=== PATIENT | male | born 1945 | race Hispanic/Latino ===

== ENCOUNTER → 2019-11-03 | Outpatient (CLI) | payer OTHER | END | disposition home or self-care (01) | LOC: RAH 12:37 | PROVIDERS: ATTEND Family Medicine | DX: M79.671 Pain in right foot (principal) | CPT/HCPCS: 73630 ==

== ENCOUNTER → 2020-02-22 | Outpatient (CLI) | payer OTHER | END | disposition home or self-care (01) | LOC: OIH 15:23 | PROVIDERS: ATTEND Family Medicine | DX: J84.10 Pulmonary fibrosis, unspecified (principal) | CPT/HCPCS: 71046 ==

== ENCOUNTER 2020-08-16 13:03 | Inpatient (IN) | payer OTHER ==
[~2020-08-16] VITALS: Ht 175.3 cm; Wt 69.1 kg
[2020-08-16] MEDS ORDERED: DEXTROSE 50%-WATER 50 ML DISP.SYRIN IV ONE ×3 (13:33→22:42)
[2020-08-16 13:54] LABS: BASOPHILS % (AUTO) 0.3 % (0.0-5.0); LYMPHOCYTES % (AUTO) 5.6 % (21.0-51.0); MEAN CORPUSCULAR HEMOGLOBIN 26.7 pg (27.0-33.0); MEAN CORPUSCULAR VOLUME 76.2 fL (79-99); MONOCYTES % (AUTO) 7.2 % (3.0-13.0); NEUTROPHILS % (AUTO) 82.7 % (40.0-77.0); PLATELET COUNT (AUTO) 197 K/uL (130-400); RED BLOOD CELL COUNT(AUTO) 4.46 MIL/uL (4.50-6.20); RED CELL DISTRIBUTION WIDTH 14.3 % (11.0-15.5); WHITE BLOOD COUNT (AUTO) 18.5 K/uL (4.8-10.8)
[2020-08-16 14:06] LABS: ALBUMIN 2.6 g/dL (3.5-5.0); BILIRUBIN,TOTAL 0.4 mg/dL (0.2-1.0); TOTAL PROTEIN, SERUM 5.9 g/dL (6.0-8.3)
[2020-08-16 14:08] LABS: POTASSIUM 6.6 mmol/L (3.5-5.1)
[2020-08-16 14:09] LABS: CREATININE 13.4 mg/dL (0.5-1.5)
[2020-08-16] MEDS ORDERED: LEVOFLOXACIN 750 MG/D5W 150 ML 150 ML ONE (14:48)
[2020-08-16] MEDS ORDERED: IOHEXOL-350 75 ML VIAL IV ONE (14:50)
[2020-08-16 14:52] LABS: INR 0.95 (0.85-1.15); PARTIAL THROMBOPLASTIN TIME 28.2 SEC (26.3-35.5); PROTHROMBIN TIME 10.3 SEC (9.6-11.6)
[2020-08-16 15:35] LABS: TROPONIN I 0.19 ng/mL (0.00-0.06)
[2020-08-16] MEDS ORDERED: SODIUM BICARB 50MEQ 50ML VIAL 50 ML ONE ×2 (15:46→17:40)
[2020-08-16] MEDS ORDERED: VANCOMYCIN 1.25 GM in SODIUM CHLORIDE 0.9% 250 ML IV SCH (16:00)
[2020-08-16 17:12] LABS: APPEARANCE,URINE Clear (CLEAR); BILIRUBIN,URINE Negative (NEGATIVE); COLOR,URINE Dark Yellow (YELLOW); GLUCOSE, URINE (UA) 250 mg/dL (NEGATIVE); KETONES,URINE Negative (NEGATIVE); LEUKOCYTE ESTERASE ,URINE Small (NEGATIVE); NITRATE,URINE Positive (NEGATIVE); OCCULT BLOOD,URINE Trace (NEGATIVE); PROTEIN,URINE Negative (NEGATIVE)
[2020-08-16 17:29] LABS: ABG BASE EXCESS -16.2 mmol/L (-2.0-3.0); ABG HCO3 8.8 mmol/L (21.0-28.0); ABG OXYGEN SATURATION 96.3 % (95.0-99.0); ABG PCO2 21 mmHg (35-48)
[2020-08-16 17:32] LABS: BACTERIA,URINE Few /HPF (None Seen)
[2020-08-16 17:34] LABS: SQUAMOUS EPITHELIAL CELL,UR Rare /HPF (0-2)
[2020-08-16] MEDS ORDERED: INSULIN HUMULIN R 100 UNIT/ML 3ML ONE (17:40)
[2020-08-16 17:50] LABS: POTASSIUM 6.6 mmol/L (3.5-5.1)
[2020-08-16 17:51] LABS: CREATININE 11.6 mg/dL (0.5-1.5)
[2020-08-16] MEDS ORDERED: SODIUM BICARB 50MEQ 50ML VIAL 200 ML ONE (20:00)
[2020-08-16] MEDS ORDERED: ACETAMINOPHEN 325 MG TAB PO PRN (20:15)
[2020-08-16] MEDS ORDERED: ONDANSETRON HCL 4 MG/2 ML VIAL IVP PRN (20:15)
[2020-08-16] MEDS: SODIUM BICARB 50MEQ 50ML VIAL 150 MEQ in DEXTROSE 5%-WATER 1,000 ML IV SCH (20:15)
[2020-08-16 23:20] VITALS: BP 151/67
--- NOTE | 2020-08-16 23:25 | NUR ---
ADMIT PT ADMITTED TO ROOM 406, AAOX3. NOTED TO HAVE GBW. CONVERSANT AND COHERENT. ADMISSION CARE DONE. ADMISSION DATA BASE COMPLETED. PT'S HOME MEDS WILL NEED TO BE BROUGHT IN BY FAMILY, SPOUSE IS AWARE. PLACED COMFORTABLY IN BED WITH HOB ELEVATED. SANDWICH GIVEN BY NURSE FROM ER BEING EATEN BY PT AT THIS TIME. BS HKPYG=650. TELE MONITOR PLACED, PT IS ST WITH KI=892 BPM. SCD'S APPLIED TO BLE. CONTINUED IVF OF D5W + NA BICARB AT 200CC/HR. ORIENTED TO ROOM AND UNIT. IN FOR MORE CARE AND MANAGEMENT. Addendum: 08/17/20 at 0003 by LIBRA SINHA RN RN Amended: Links added.
[2020-08-16] MEDS ORDERED: AMOX1TAB16 PO (23:40)
[2020-08-16] MEDS ORDERED: DEXTROSE 50%-WATER 50 ML DISP.SYRIN IV PRN (23:45)
[2020-08-16] MEDS ORDERED: GLUCAGON 1MG KIT 1 MG ML IM PRN (23:45)
[2020-08-17 00:59] LABS: CREATININE 5.9 mg/dL (0.5-1.5); POTASSIUM 4.2 mmol/L (3.5-5.1)
[2020-08-17] MEDS ORDERED: SODIUM BICARB 50MEQ 50ML VIAL 150 ML ONE (01:32)
[2020-08-17] MEDS ORDERED: DEXTROSE 5%-WATER 1,000 ML IV ONE ×2 (01:33→08:45)
--- NOTE | 2020-08-17 01:45 | NUR ---
SCD'S PT CALLS AND CLAIMS THAT SCD'S ARE HOT AND IS UNCOMFORTABLE. PT'S SPOUSE REMOVED SCD'S FOR NOW.
[2020-08-17] MEDS: SODIUM BICARB 50MEQ 50ML VIAL 150 MEQ in DEXTROSE 5%-WATER 1,000 ML IV SCH ×3 (01:55→14:23)
--- NOTE | 2020-08-17 03:47 | NUR ---
O2 SAT PT IS RESTING IN BED. DENIES ANY DISCOMFORT NOR PAINS AT THIS TIME. NO RESPIRATORY DISTRESS NOTED. O2 SAT=87-88% ON RA. RE-POSITIONED PT IN BED WITH HOB ELEVATED. O2 PROVIDED AT 2LPM VIA NC. O2 SAT INCREASED TO 92%. Addendum: 08/17/20 at 0353 by LIBRA SINHA RN RN Amended: Links added.
[2020-08-17 03:54] VITALS: BP 155/60
--- NOTE | 2020-08-17 07:10 | NUR ---
REPORT REPORT GIVEN TO AM SHIFT NURSEELISABETH. NURSES ROUNDS DONE. FOR MORE CARE.
[2020-08-17 08:00] VITALS: BP 133/68
[2020-08-17] MEDS ORDERED: PANTOPRAZOLE SODIUM 40 MG TABLET.DR PO SCH (09:00)
--- NOTE | 2020-08-17 11:43 | NUR ---
[facility] [place] Spoke with patient's spouse (Leora Fernandez at [phone]). As per spouse, patient lives at home with spouse. He was independent with ADLs before this admission, and reports no DME or services being received at home. Spouse and son (Lane Fernandez Jr [phone]) to assist with transport upon discharge. Addendum: 08/17/20 at 1149 by CARLOS VAUGHAN Amended: Links added.
[2020-08-17 12:00] VITALS: BP 136/63
[2020-08-17 16:00] VITALS: BP 155/77
[2020-08-17] MEDS ORDERED: ONDANSETRON HCL 4 MG/2 ML VIAL IV PRN (18:00)
[2020-08-17] MEDS ORDERED: MAG HYDROX/AL HYDROX/SIMETH ES 30 ML SUSP UDCUP PO PRN (18:00)
[2020-08-17] MEDS ORDERED: ACETAMINOPHEN 325 MG TAB PO PRN ×2 (18:00)
[2020-08-17] MEDS ORDERED: LACTULOSE 20 GM/30 ML UDCUP PO PRN (18:00)
[2020-08-17] MEDS ORDERED: MORPHINE SULFATE 2 MG/ML 1ML SYG IV PRN (18:00)
[2020-08-17] MEDS ORDERED: NITROGLYCERIN 0.4 MG SL TAB SL PRN (18:00)
[2020-08-17] MEDS ORDERED: GUAIFENESIN-DM 200/20 MG 10 ML PO PRN (18:00)
[2020-08-17] MEDS ORDERED: ZOLPIDEM TARTRATE 5 MG TAB PO PRN (18:00)
[2020-08-17] MEDS ORDERED: DiphenhydrAMINE HCL 50 MG/ML VIAL IV PRN (18:00)
[2020-08-17] MEDS ORDERED: DIPHENHYDRAMINE HCL 25 MG CAPSULE PO PRN (18:00)
[2020-08-17] MEDS: ZOSYN 3.375GM+NS 50ML 50 ML IV SCH (18:43)
[2020-08-17] MEDS: INSULIN HUMULIN R 100 UNIT/ML 3ML SQ SCH (20:47)
[2020-08-17 20:50] VITALS: BP 148/68
[2020-08-17 23:04] VITALS: BP 144/74
[2020-08-18] MEDS: SODIUM BICARB 50MEQ 50ML VIAL 150 MEQ in DEXTROSE 5%-WATER 1,000 ML IV SCH ×2 (01:53→09:25)
[2020-08-18] MEDS ORDERED: SIMV40TA59 PO (03:34)
[2020-08-18] MEDS ORDERED: ASPI-1197 PO (03:34)
[2020-08-18] MEDS ORDERED: METF-446 PO (03:34)
[2020-08-18] MEDS ORDERED: TAMS-1 PO (03:34)
[2020-08-18] MEDS ORDERED: GLIM4TAB36 PO (03:34)
[2020-08-18] MEDS ORDERED: METO50TA18 PO (03:34)
[2020-08-18 03:49] VITALS: BP 156/66
[2020-08-18 05:37] LABS: BASOPHILS % (AUTO) 0.2 % (0.0-5.0); HEMATOCRIT 28.9 % (42-54); LYMPHOCYTES % (AUTO) 5.7 % (21.0-51.0); MEAN CORPUSCULAR HEMOGLOBIN 26.1 pg (27.0-33.0); MEAN CORPUSCULAR HGB CONC 32.5 g/dL (32.0-36.0); MEAN CORPUSCULAR VOLUME 80.3 fL (79-99); MONOCYTES % (AUTO) 12.3 % (3.0-13.0); NEUTROPHILS % (AUTO) 80.1 % (40.0-77.0); PLATELET COUNT (AUTO) 180 K/uL (130-400); RED CELL DISTRIBUTION WIDTH 14.5 % (11.0-15.5); WHITE BLOOD COUNT (AUTO) 10.9 K/uL (4.8-10.8)
[2020-08-18 06:01] LABS: B-TYPE NATRIURETIC PEPTIDE 112 pg/mL (0-100)
[2020-08-18 06:06] LABS: HEMOGLOBIN A1C 7.8 % (4.0-6.0)
[2020-08-18 06:09] LABS: BILIRUBIN,TOTAL 0.4 mg/dL (0.2-1.0); CREATININE 1.1 mg/dL (0.5-1.5); MAGNESIUM 2.1 mg/dL (1.80-2.40); THYROID STIMULATING HORMONE 0.2 uIU/mL (0.36-3.74); TOTAL PROTEIN, SERUM 4.6 g/dL (6.0-8.3)
[2020-08-18] MEDS: ZOSYN 3.375GM+NS 50ML 50 ML IV SCH ×2 (06:18→18:42)
[2020-08-18] MEDS: INSULIN HUMULIN R 100 UNIT/ML 3ML SQ SCH ×4 (06:27→21:58)
[2020-08-18 07:41] LABS: ABG BASE EXCESS 1.1 mmol/L (-2.0-3.0); ABG HCO3 24.8 mmol/L (21.0-28.0); ABG OXYGEN SATURATION 92.8 % (95.0-99.0); ABG PCO2 37 mmHg (35-48)
[2020-08-18 08:00] VITALS: BP 165/70
[2020-08-18] MEDS: ENOXAPARIN SODIUM 30 MG/0.3 ML SQ SCH (08:48)
[2020-08-18] MEDS: FAMOTIDINE/PF 20 MG/2 ML VIAL IV SCH (08:48)
[2020-08-18] MEDS: TAMSULOSIN HCL 0.4 MG CAP.ER.24H PO SCH (08:48)
[2020-08-18] MEDS: Vitamin B Complex/Vit C/Folic Acid PO SCH (08:48)
[2020-08-18] MEDS: PANTOPRAZOLE SODIUM 40 MG TABLET.DR PO SCH (08:51)
[2020-08-18] MEDS: DEXTROSE 5%-WATER 1,000 ML IV SCH ×2 (10:30→20:30)
[2020-08-18 12:00] VITALS: BP 140/74
[2020-08-18 13:55] LABS: BASOPHILS % (AUTO) 0.2 % (0.0-5.0); HEMATOCRIT 32.1 % (42-54); LYMPHOCYTES % (AUTO) 3.8 % (21.0-51.0); MEAN CORPUSCULAR HEMOGLOBIN 26.5 pg (27.0-33.0); MEAN CORPUSCULAR HGB CONC 32.1 g/dL (32.0-36.0); MEAN CORPUSCULAR VOLUME 82.7 fL (79-99); MONOCYTES % (AUTO) 8.9 % (3.0-13.0); NEUTROPHILS % (AUTO) 84.7 % (40.0-77.0); PLATELET COUNT (AUTO) 192 K/uL (130-400); RED BLOOD CELL COUNT(AUTO) 3.88 MIL/uL (4.50-6.20); RED CELL DISTRIBUTION WIDTH 14.8 % (11.0-15.5); WHITE BLOOD COUNT (AUTO) 11.5 K/uL (4.8-10.8)
[2020-08-18 14:06] LABS: CREATININE 1.3 mg/dL (0.5-1.5)
[2020-08-18 16:00] VITALS: BP 158/63
[2020-08-18 20:00] VITALS: BP 125/47
[2020-08-18] MEDS: SIMVASTATIN 20 MG TABLET PO SCH (21:57)
[2020-08-19] VITALS (8 sets, daily range): BP systolic 130–177; BP diastolic 60–79
[2020-08-19] MEDS: PANTOPRAZOLE SODIUM 40 MG TABLET.DR PO SCH (05:50)
[2020-08-19] MEDS: DEXTROSE 5%-WATER 1,000 ML IV SCH (05:50)
[2020-08-19] MEDS: ZOSYN 3.375GM+NS 50ML 50 ML IV SCH (05:50)
[2020-08-19] MEDS ORDERED: SODIUM CHLORIDE 0.9% 250 ML IV ONE (05:56)
[2020-08-19] MEDS: INSULIN HUMULIN R 100 UNIT/ML 3ML SQ SCH ×3 (06:04→21:46)
[2020-08-19] MEDS: FAMOTIDINE/PF 20 MG/2 ML VIAL IV SCH (08:18)
[2020-08-19] MEDS: Vitamin B Complex/Vit C/Folic Acid PO SCH (08:18)
[2020-08-19] MEDS: ENOXAPARIN SODIUM 30 MG/0.3 ML SQ SCH (08:18)
[2020-08-19] MEDS: TAMSULOSIN HCL 0.4 MG CAP.ER.24H PO SCH (08:18)
[2020-08-19] MEDS ORDERED: ASPIRIN 81MG TAB.CHEW PO SCH (09:00)
[2020-08-19] MEDS ORDERED: METOPROLOL TARTRATE 50 MG TAB PO SCH (09:00)
[2020-08-19 09:51] LABS: BASOPHILS % (AUTO) 0.1 % (0.0-5.0); EOSINOPHILS % (AUTO) 0.5 % (0.0-8.0); HEMATOCRIT 34.6 % (42-54); LYMPHOCYTES % (AUTO) 6.2 % (21.0-51.0); MEAN CORPUSCULAR HEMOGLOBIN 26.8 pg (27.0-33.0); MEAN CORPUSCULAR HGB CONC 31.8 g/dL (32.0-36.0); MEAN CORPUSCULAR VOLUME 84.2 fL (79-99); MONOCYTES % (AUTO) 5.4 % (3.0-13.0); NEUTROPHILS % (AUTO) 86.8 % (40.0-77.0); NUCLEATED RED BLOOD CELLS 0.1 % (0.0-0.19); PLATELET COUNT (AUTO) 212 K/uL (130-400); RED BLOOD CELL COUNT(AUTO) 4.11 MIL/uL (4.50-6.20); RED CELL DISTRIBUTION WIDTH 14.6 % (11.0-15.5); WHITE BLOOD COUNT (AUTO) 14.5 K/uL (4.8-10.8)
[2020-08-19 10:32] LABS: ALBUMIN 2.4 g/dL (3.5-5.0); BILIRUBIN,TOTAL 0.4 mg/dL (0.2-1.0); CREATININE 0.9 mg/dL (0.5-1.5); MAGNESIUM 1.5 mg/dL (1.80-2.40); PHOSPHORUS 1.4 mg/dL (2.5-4.9); POTASSIUM 3.9 mmol/L (3.5-5.1); TOTAL PROTEIN, SERUM 5.5 g/dL (6.0-8.3)
[2020-08-19] MEDS ORDERED: POTASSIUM PHOS 15 mMOL+NS250ML 250 ML IV PRN (12:15)
[2020-08-19] MEDS ORDERED: MAGNESIUM 2GM PREMIX 50ML 50 ML IV SCH (12:15)
[2020-08-19] MEDS ORDERED: AMOX1TAB15 PO (13:37)
[2020-08-19] MEDS ORDERED: METFORMIN HCL 500 MG TABLET PO SCH (17:00)
[2020-08-19] MEDS ORDERED: SOD PHOSPHATE IV ONE (19:30)
[2020-08-19] MEDS ORDERED: SODIUM CHLORIDE 0.9% IV ONE (19:30)
[2020-08-19] MEDS: SIMVASTATIN 20 MG TABLET PO SCH (19:55)
[2020-08-19] MEDS ORDERED: TAMSULOSIN HCL 0.4 MG CAP.ER.24H PO SCH (21:00)
--- NOTE | 2020-08-19 21:00 | NUR ---
Nursing Note-Pt pending D/C Started the Sod.Phosphate at 1953 that Alonso. Raul wanted to be given before pt to be d/c. Spoke w/ Dr. Washington to clarify if he signed off. Dr. Washington stated Okay to go home but to be d/c with sommers. SW has to make arrangements to, have the urologist to take care of sommers. Informed supervisor stave cutting, BLANCA. about issue of pt still here and d/c orders.
[2020-08-20] MEDS: DEXTROSE 5%-WATER 1,000 ML IV SCH (02:30)
--- NOTE | 2020-08-20 02:30 | NUR ---
Nursing Note-telemetry Pt signed refusal for telemetry form
[2020-08-20] MEDS: ZOSYN 3.375GM+NS 50ML 50 ML IV SCH (06:07)
[2020-08-20] MEDS: INSULIN HUMULIN R 100 UNIT/ML 3ML SQ SCH (06:50)
[2020-08-20 07:28] VITALS: BP 166/77
[2020-08-20] MEDS ORDERED: GLIMEPIRIDE 2 MG TABLET PO SCH (08:00)
--- NOTE | 2020-08-20 08:10 | NUR ---
[place] INSTRUCTIONS GIVEN TO PATIENT AND SPOUSE, MADDY BLACK ON URINE CATHETER CARE, EMPTYING URINE LEG BAG. BOTH VERBALIZED UNDERSTANDING. PATIENT RETURNED DEMONSTRATION ON HOW TO EMPTY URINE FROM LEG BAG. DISMISSAL INSTRUCTIONS AND SCRIPT INSTRUCTIONS GIVEN IN [place] TO PATIENT AND SPOUSE, MADDY BLACK. BOTH VERBALIZED UNDERSTANDING. REMOVED SALINE LOCK FROM LEFT ARM AREA, IV SITE WITHOUT REDNESS NOTED. NO TELE PACK PRESENT. MADDY ASSISTING PATIENT TO GET DRESSED. PATIENT'S SON WILL BE TRANSPORTING PATIENT HOME. REINFORCED TO BOTH THE IMPORTANCE OF GOING IN TOMORROW MORNING AFTER 8AM TO SEE DR. ELVIA BUCIO OR NURSE PRACTITIONER, MARY ANN ALARCON. VERBALIZED UNDERSTANDING. REPORTED OFF TO PRIMARY CARE NURSE, JESUSITA LANCASTER.
== END 2020-08-20 09:20 | disposition home or self-care (01) | DRG 872 ==
LOC: EDH 13:03 → EDHIP 19:55 → 4BH 23:16
PROVIDERS: ADMIT Internal Medicine; ATTEND Internal Medicine
DX: A41.9 Sepsis, unspecified organism (principal); N17.9 Acute kidney failure, unspecified; N13.6 Pyonephrosis; N13.8 Other obstructive and reflux uropathy; E11.9 Type 2 diabetes mellitus without complications; E78.5 Hyperlipidemia, unspecified; K22.8 Other specified diseases of esophagus; E87.5 Hyperkalemia; N40.1 Benign prostatic hyperplasia with lower urinary tract symptoms; I10 Essential (primary) hypertension; Z79.82 Long term (current) use of aspirin; Z79.84 Long term (current) use of oral hypoglycemic drugs; Z79.899 Other long term (current) drug therapy
CPT/HCPCS: 36415; 36600; 70450; 71045; 74176; 76770; 80048; 80053; 80061; 81001; 82550; 82803; 82948; 83036; 83605; 83735; 83874; 83880; 84100; 84145; 84439; 84443; 84484; 85025; 85610; 85730; 86900; 86901; 87040; 87046; 87088; 93005; G0378; J1650; J1815; J1956; J2543; J3370; J3475; J3490; J7050; J7070; Q9967

== ENCOUNTER → 2021-03-30 | Outpatient (CLI) | payer OTHER ==
[~2021-03-30] MED LIST: AMOX1TAB15 PO; AMOX1TAB16 PO; ASPI-1197 PO; GLIM4TAB36 PO; METF-446 PO; METO50TA18 PO; SIMV40TA59 PO; TAMS-1 PO
== END | disposition home or self-care (01) ==
LOC: RAH 13:13
PROVIDERS: ATTEND Family Medicine
DX: R19.03 Right lower quadrant abdominal swelling, mass and lump (principal); R10.31 Right lower quadrant pain
CPT/HCPCS: 76882

== ENCOUNTER 2021-12-21 14:22 | Emergency (ER) | payer OTHER ==
[~2021-12-21] VITALS: Ht 162.6 cm; Wt 74.8 kg
[2021-12-21 15:22] LABS: BASOPHILS % (AUTO) 0.2 % (0.0-5.0); EOSINOPHILS % (AUTO) 0.1 % (0.0-8.0); MEAN CORPUSCULAR HEMOGLOBIN 26.8 pg (27.0-33.0); MEAN CORPUSCULAR HGB CONC 31.9 g/dL (32.0-36.0); MONOCYTES % (AUTO) 6.2 % (3.0-13.0); NEUTROPHILS % (AUTO) 84.6 % (40.0-77.0); PLATELET COUNT (AUTO) 268 K/uL (130-400); RED CELL DISTRIBUTION WIDTH 13.7 % (11.0-15.5); WHITE BLOOD COUNT (AUTO) 12.4 K/uL (4.8-10.8)
[2021-12-21 15:41] LABS: CREATININE 1.5 mg/dL (0.5-1.5); POTASSIUM 4.2 mmol/L (3.5-5.1)
[2021-12-21] MEDS ORDERED: INSULIN HUMULIN R 100 UNIT/ML 3ML SQ ONE (16:00)
[2021-12-21] MEDS ORDERED: 0.9%NACL 1000ML 2,000 ML IV ONE (16:00)
[2021-12-21 16:21] LABS: APPEARANCE,URINE CLOUDY (CLEAR); BILIRUBIN,URINE NEGATIVE (NEGATIVE); COLOR,URINE YELLOW (YELLOW); GLUCOSE, URINE (UA) >=1000 mg/dL (NEGATIVE); KETONES,URINE >=80 mg/dL (NEGATIVE); LEUKOCYTE ESTERASE ,URINE SMALL (NEGATIVE); NITRATE,URINE NEGATIVE (NEGATIVE); OCCULT BLOOD,URINE SMALL (NEGATIVE); PH,URINE 5.5 (5.0-8.0); PROTEIN,URINE NEGATIVE (NEGATIVE); UROBILINOGEN,URINE 0.2 mg/dL (0.2-1.0)
[2021-12-21 16:30] LABS: BACTERIA,URINE Few /HPF (None Seen); RBC,URINE None Seen /HPF (0-1); SQUAMOUS EPITHELIAL CELL,UR None Seen /HPF (0-2); WBC,URINE 51-100 /HPF (0-1)
[2021-12-21] MEDS ORDERED: CEFTRIAXONE 1G VIAL IVP ONE (16:50)
[2021-12-21 18:06] VITALS: BP 132/61
[2021-12-21] MEDS ORDERED: CEFP200T14 PO (18:18)
== END 2021-12-21 18:40 | disposition home or self-care (01) ==
LOC: EDH 14:33
DX: N39.0 Urinary tract infection, site not specified (principal); E11.65 Type 2 diabetes mellitus with hyperglycemia; E86.9 Volume depletion, unspecified; I11.0 Hypertensive heart disease with heart failure; E78.00 Pure hypercholesterolemia, unspecified; Z79.82 Long term (current) use of aspirin; Z79.84 Long term (current) use of oral hypoglycemic drugs; Z79.899 Other long term (current) drug therapy
CPT/HCPCS: 36415; 80048; 81001; 82948 ×2; 85025; 87077; 87088; 87186; 96361; 96374; 99284; J0696; J1815; J7030

== ENCOUNTER → 2023-05-12 | Outpatient (CLI) | payer OTHER ==
[~2023-05-12] MED LIST changes: +CEFP200T14 PO; +IOHEXOL 350 MG/ML 100ML INFUS..BTL IV ONE
== END | disposition home or self-care (01) ==
LOC: RAH 08:08
PROVIDERS: ATTEND Family Medicine
DX: R10.814 Left lower quadrant abdominal tenderness (principal); R19.09 Other intra-abdominal and pelvic swelling, mass and lump; R93.811 Abnormal radiologic findings on diagnostic imaging of right testicle
CPT/HCPCS: 74178; Q9967

== ENCOUNTER 2023-10-04 21:35 | Emergency (ER) | payer OTHER ==
[~2023-10-04] VITALS: Ht 152.4 cm; Wt 56.7 kg
[~2023-10-04 21:35] MED LIST changes: -IOHEXOL 350 MG/ML 100ML INFUS..BTL IV ONE
[2023-10-04 22:19] LABS: BASOPHILS # (AUTO) 0.02 K/uL (0.00-0.20); BASOPHILS % (AUTO) 0.3 % (0.0-5.0); EOSINOPHILS # (AUTO) 0.06 K/uL (0.00-0.70); EOSINOPHILS % (AUTO) 0.8 % (0.0-8.0); IMMATURE GRANULOCYTE ABSOLUTE 0.04 K/uL (0-1); LYMPHOCYTES # (AUTO) 1.2 K/uL (1.0-4.8); LYMPHOCYTES % (AUTO) 15.5 % (21.0-51.0); MEAN CORPUSCULAR HEMOGLOBIN 28.2 pg (27.0-33.0); MEAN CORPUSCULAR VOLUME 85.3 fL (79-99); MONOCYTES # (AUTO) 0.6 K/uL (0.1-1.0); MONOCYTES % (AUTO) 7.7 % (3.0-13.0); NEUTROPHILS % (AUTO) 75.2 % (40.0-77.0); PLATELET COUNT (AUTO) 214 K/uL (130-400); RED BLOOD CELL COUNT(AUTO) 5.39 MIL/uL (4.50-6.20); RED CELL DISTRIBUTION WIDTH 13.9 % (11.0-15.5); WHITE BLOOD COUNT (AUTO) 7.9 K/uL (4.8-10.8)
[2023-10-04] MEDS ORDERED: HYDR25TA PO (22:28)
[2023-10-04 22:29] LABS: CREATININE 1.3 mg/dL (0.5-1.5); POTASSIUM 4.2 mmol/L (3.5-5.1)
[2023-10-04] MEDS ORDERED: METO50TA18 PO (22:29)
[2023-10-04] MEDS ORDERED: PIOG15TA66 PO (22:29)
[2023-10-04] MEDS ORDERED: EMPA25TA PO (22:30)
[2023-10-04] MEDS ORDERED: MELO-106 PO (22:30)
[2023-10-04] MEDS ORDERED: ROSU20TA73 PO (22:31)
[2023-10-04] MEDS ORDERED: PANT40TA54 PO (22:32)
[2023-10-04 22:36] LABS: ALBUMIN 3.5 g/dL (3.5-5.0); BILIRUBIN,TOTAL 0.4 mg/dL (0.2-1.0); TOTAL PROTEIN, SERUM 6.9 g/dL (6.0-8.3)
[2023-10-04] MEDS ORDERED: 0.9%NACL 1000ML 1,000 ML IV SCH (23:30)
[2023-10-04] MEDS ORDERED: INSULIN HUMULIN R 100 UNIT/ML 3ML IV ONE (23:30)
[2023-10-05 00:39] LABS: ADD UA MICROSCOPIC YES; APPEARANCE,URINE CLEAR (CLEAR); BILIRUBIN,URINE NEGATIVE (NEGATIVE); COLOR,URINE COLORLESS (YELLOW); GLUCOSE, URINE (UA) >=1000 mg/dL (NEGATIVE); KETONES,URINE 20 mg/dL (NEGATIVE); LEUKOCYTE ESTERASE ,URINE NEGATIVE Leu/uL (NEGATIVE); NITRATE,URINE NEGATIVE (NEGATIVE); OCCULT BLOOD,URINE NEGATIVE (NEGATIVE); PH,URINE 6.5 (5.0-8.0); PROTEIN,URINE NEGATIVE (NEGATIVE); UROBILINOGEN,URINE 0.2 mg/dL (0.2-1.0)
[2023-10-05 00:40] LABS: RBC,URINE 0-1 /HPF (0-1); SQUAMOUS EPITHELIAL CELL,UR RARE /HPF (0-2)
[2023-10-05 01:49] VITALS: BP 127/60; PULSE 75; RESP 18; O2SAT 97
== END 2023-10-05 02:01 | disposition home or self-care (01) ==
LOC: EDH 21:35
DX: E11.65 Type 2 diabetes mellitus with hyperglycemia (principal); I10 Essential (primary) hypertension; E78.00 Pure hypercholesterolemia, unspecified; Z79.84 Long term (current) use of oral hypoglycemic drugs; Z79.899 Other long term (current) drug therapy
CPT/HCPCS: 99285; 96374; 71045; 82550; 84484; 80053; 85025; 81001; 36415; 93005; J1815; J7030

== ENCOUNTER → 2025-01-17 | Outpatient (CLI) | payer OTHER ==
[~2025-01-17] MED LIST changes: +EMPA25TA PO; +HYDR25TA PO; +MELO-106 PO; +PANT40TA54 PO; +PIOG15TA66 PO; +ROSU20TA98 PO
--- NOTE | 2025-01-17 15:05 | HMCIMG ---
CALCANEUS 2+VWS RT REASON: Pain in right foot. COMPARISON: None TECHNIQUE: 2 images of right calcaneus were obtained. FINDINGS: There is a calcaneal spur. Vascular calcifications are seen. Soft tissue swelling is seen. There is no acute displaced fracture or dislocation. IMPRESSION: Findings as described above.
== END | disposition home or self-care (01) ==
LOC: RAH 13:50
PROVIDERS: ATTEND Family Medicine
DX: M77.31 Calcaneal spur, right foot (principal); M79.671 Pain in right foot
CPT/HCPCS: 73650